=== PATIENT | female | born 1970 | race Caucasian/White ===

== ENCOUNTER 2021-08-01 10:55 | Observation (INO) | payer OTHER ==
[~2021-08-01] VITALS: Ht 165.1 cm; Wt 65.8 kg
[2021-08-01 10:55] VITALS: BP_SYST 135; BP_SYST 35
[2021-08-01] MEDS ORDERED: ASPIRIN 81 MG TAB.CHEW PO ONE (11:45)
[2021-08-01 12:02] LABS: BASOPHILS % (AUTO) 0.4 % (0.0-2.0); EOSINOPHILS % (AUTO) 0.5 % (0.0-4.0); HEMATOCRIT 37.3 % (36-48); HEMOGLOBIN 12.7 g/dL (12.0-16.0); LYMPHOCYTES # (AUTO) 1.6 K/uL (1.0-5.5); LYMPHOCYTES % (AUTO) 18.2 % (20.5-51.5); MEAN CORPUSCULAR HEMOGLOBIN 33 pg (27-31); MEAN CORPUSCULAR HGB CONC 34 % (32-36); MEAN CORPUSCULAR VOLUME 96 fL (79.0-98.0); MONOCYTES # (AUTO) 0.6 K/uL (0.0-1.0); MONOCYTES % (AUTO) 6.5 % (1.7-9.3); NEUTROPHILS # (AUTO) 6.5 K/uL (1.8-7.7); NEUTROPHILS % (AUTO) 74.4 % (40.0-70.0); PLATELET COUNT (AUTO) 178 K/uL (130-430); WHITE BLOOD COUNT (AUTO) 8.7 K/uL (4.8-10.8)
[2021-08-01 12:18] LABS: CALCIUM 9.1 mg/dL (8.4-11.0); CREATININE 0.7 mg/dL (0.55-1.30); POTASSIUM 3.8 mmol/L (3.5-5.1)
[2021-08-01 12:22] LABS: INR 0.9 (0.8-1.2); PROTHROMBIN TIME 9.9 SECS (9.5-12.5)
[2021-08-01 12:29] LABS: ALBUMIN 3.1 g/dL (3.4-4.8); TOTAL BILIRUBIN 1.2 mg/dL (0.0-1.0)
[2021-08-01 18:25] VITALS: BP_SYST 124
[2021-08-01 20:00] VITALS: BP_SYST 95
[2021-08-01] MEDS ORDERED: LEVO75CA5 PO (20:41)
[2021-08-01] MEDS ORDERED: CYM30 PO (20:52)
[2021-08-01] MEDS ORDERED: ATOR10TA68 PO (20:52)
[2021-08-01] MEDS ORDERED: ASPI-1155 PO (20:52)
[2021-08-01] MEDS ORDERED: ENAL2.5T17 PO (20:52)
[2021-08-01] MEDS ORDERED: DIVA250T2 PO (20:52)
[2021-08-01] MEDS ORDERED: CARV3.1246 PO (20:52)
[2021-08-01] MEDS ORDERED: ACETAMINOPHEN 325 MG TABLET PO ONE (21:00)
[2021-08-01] MEDS ORDERED: MECO10005 PO (21:43)
[2021-08-01] MEDS ORDERED: CHOL200041 PO (21:43)
[2021-08-01] MEDS ORDERED: PANT40TA45 PO (21:43)
[2021-08-01] MEDS ORDERED: DIVA250T PO (21:50)
[2021-08-01] MEDS ORDERED: DULoxetine HCL 30 MG CAPSULE.DR (CYMBALTA) PO ONE (22:00)
[2021-08-01] MEDS ORDERED: DIVALPROEX SODIUM 500 MG TABLET( DEPAKOTE) PO ONE ×2 (22:00→22:22)
[2021-08-01] MEDS ORDERED: POLYETHYLENE GLYCOL 3350, 17 GM/ POWD.PACK PO PRN (22:00)
[2021-08-01] MEDS ORDERED: ACETAMINOPHEN 325 MG TABLET ONE (22:00)
[2021-08-01] MEDS ORDERED: DULoxetine HCL 30 MG CAPSULE.DR (CYMBALTA) ONE (22:22)
[2021-08-02] VITALS: BP_SYST 102
[2021-08-02] MEDS ORDERED: CARVEDILOL 3.125 MG TABLET (COREG) PO PRN (07:30)
[2021-08-02 08:00] VITALS: BP_SYST 116
[2021-08-02] MEDS ORDERED: ASPIRIN 81 MG TAB.CHEW PO SCH (09:00)
[2021-08-02] MEDS ORDERED: DIVALPROEX SODIUM 250 MG TAB.SR.24H (DEPAKOTE ER) PO SCH ×2 (09:00→21:00)
[2021-08-02] MEDS ORDERED: ATORVASTATIN 10 MG TABLET PO SCH (09:00)
[2021-08-02] MEDS ORDERED: PANTOPRAZOLE SODIUM 40 MG TAB PO SCH (09:00)
[2021-08-02] MEDS ORDERED: DULoxetine HCL 30 MG CAPSULE.DR (CYMBALTA) PO SCH (09:00)
[2021-08-02 11:16] VITALS: BP_SYST 116
== END 2021-08-02 14:20 | disposition home or self-care (01) ==
LOC: SED 10:55 → STU 14:08
PROVIDERS: ADMIT Internal Medicine Hospice and Palliative Medicine; ATTEND Internal Medicine Hospice and Palliative Medicine
DX: I51.81 Takotsubo syndrome (principal); Z20.822 Contact with and (suspected) exposure to COVID-19; R07.89 Other chest pain; R51.9 Headache, unspecified; I49.01 Ventricular fibrillation; E03.9 Hypothyroidism, unspecified; E78.5 Hyperlipidemia, unspecified; F25.0 Schizoaffective disorder, bipolar type; F41.9 Anxiety disorder, unspecified; F43.10 Post-traumatic stress disorder, unspecified; I25.2 Old myocardial infarction; Z95.810 Presence of automatic (implantable) cardiac defibrillator; Z79.899 Other long term (current) drug therapy
CPT/HCPCS: 36415; 71045; 80053; 83880; 84484; 85025; 85610; 85730; 87426; 93005; 93306; 99285; G0378 ×2

== ENCOUNTER 2021-12-03 11:53 | Outpatient (CLI) | payer OTHER ==
[~2021-12-03 11:53] MED LIST: ASPI-1155 PO; ATOR10TA68 PO; CARV3.1246 PO; CHOL200041 PO; CYM30 PO; DIVA250T PO; DIVA250T2 PO; ENAL2.5T17 PO; LEVO75CA5 PO; MECO10005 PO; PANT40TA45 PO
== END 2021-12-03 13:00 | disposition home or self-care (01) ==
LOC: SLB 11:53 → SDS 12-07 10:09 → SMU 12-07 10:12 → SDS 12-07 10:13 → EDSTATUS 12-07 12:30
PROVIDERS: ATTEND Neurological Surgery
DX: Z01.812 Encounter for preprocedural laboratory examination (principal); M50.30 Other cervical disc degeneration, unspecified cervical region; U07.1 COVID-19; Z20.822 Contact with and (suspected) exposure to COVID-19
CPT/HCPCS: U0003

== ENCOUNTER 2022-01-04 13:07 | Day surgery (SDC) | payer OTHER, SELFPAY ==
[~2022-01-04] VITALS: Ht 165.1 cm; Wt 65.8 kg
[2022-01-04 13:27] LABS: BASOPHILS % (AUTO) 0.8 % (0.0-2.0); HEMATOCRIT 37.1 % (36-48); HEMOGLOBIN 12.1 g/dL (12.0-16.0); LYMPHOCYTES # (AUTO) 1.4 K/uL (1.0-5.5); LYMPHOCYTES % (AUTO) 36.4 % (20.5-51.5); MEAN CORPUSCULAR HEMOGLOBIN 32 pg (27-31); MEAN CORPUSCULAR HGB CONC 33 % (32-36); MEAN CORPUSCULAR VOLUME 99 fL (79.0-98.0); MONOCYTES # (AUTO) 0.3 K/uL (0.0-1.0); MONOCYTES % (AUTO) 7.3 % (1.7-9.3); NEUTROPHILS % (AUTO) 54.5 % (40.0-70.0); PLATELET COUNT (AUTO) 192 K/uL (130-430); RED BLOOD CELL COUNT(AUTO) 3.74 MIL/uL (4.2-6.2); RED CELL DISTRIBUTION WIDTH 13.2 % (9.0-15.0); WHITE BLOOD COUNT (AUTO) 3.7 K/uL (4.8-10.8)
[2022-01-04 13:44] LABS: PROTHROMBIN TIME 10.4 SECS (9.5-12.5)
[2022-01-04 13:47] LABS: CALCIUM 8.8 mg/dL (8.4-11.0); CREATININE 0.72 mg/dL (0.55-1.30); POTASSIUM 4.9 mmol/L (3.5-5.1)
[2022-01-04] MEDS ORDERED: METO-442 PO (13:55)
[2022-01-04] MEDS ORDERED: RISP0.5T5 PO (13:57)
[2022-01-04] MEDS ORDERED: TRAZ-250 PO (13:57)
[2022-01-04] MEDS ORDERED: LORA10TA7 PO (14:00)
[2022-01-04] MEDS ORDERED: MECO10005 (14:01)
[2022-01-04] MEDS ORDERED: FLUT16SP16 (14:04)
[2022-01-04 14:07] LABS: BILIRUBIN,URINE NEGATIVE (NEGATIVE); BLOOD, URINE NEGATIVE (NEGATIVE); CLARITY/URINE CLEAR (CLEAR); COLOR,URINE YELLOW (YELLOW); GLUCOSE,URINE NEGATIVE (NEGATIVE); KETONES,URINE NEGATIVE (NEGATIVE); LEUKOCYTE ESTERASE ,URINE NEGATIVE (NEGATIVE); NITRITE, URINE NEGATIVE (NEGATIVE); PROTEIN URINE NEGATIVE (NEGATIVE)
[2022-01-04] MEDS ORDERED: SEVOFLURANE 15 MIN GAS INH ONE (15:55)
[2022-01-04] MEDS ORDERED: ceFAZolin SODIUM 1 GM VIAL ONE (15:55)
[2022-01-04] MEDS ORDERED: BUPIVACAINE /EPINEPHRINE/PF 0.25% 30 ML VIAL INJ ONE (15:55)
[2022-01-04] MEDS ORDERED: fentaNYL CITRATE 250 MCG/5 ML AMP ONE (15:55)
[2022-01-04] MEDS ORDERED: MIDAZOLAM HCL 5 MG/ML VIAL (VERSED) IV ONE (15:55)
[2022-01-04] MEDS ORDERED: PROPOFOL 200MG/ 20ML VIAL (DIPRIVAN) IV ONE (15:55)
[2022-01-04] MEDS ORDERED: LR 1,000 ML IV.SOLN IV ONE (15:55)
[2022-01-04] MEDS ORDERED: THROMBIN (BOVINE) 5000 UNITS/ VIAL TP ONE ×2 (15:55→16:54)
[2022-01-04] MEDS ORDERED: DEXAMETHASONE SOD PHOSPHATE 4 MG/ML VIAL ONE (15:55)
[2022-01-04] MEDS ORDERED: ROCURONIUM BROMIDE 10 MG/ML (ZEMURON) ONE (15:55)
[2022-01-04] MEDS ORDERED: WATER FOR IRRIGATION,STERILE 1,000 ML IRRIG.SOLN IR ONE (15:55)
[2022-01-04] MEDS ORDERED: NS IRRIG SOLN 1000 ML IR ONE (15:55)
[2022-01-04] MEDS ORDERED: METOCLOPRAMIDE HCL 10 MG/2 ML VIAL IVP PRN (16:45)
[2022-01-04] MEDS ORDERED: fentaNYL CITRATE/PF 100 MCG/2 ML AMP IVP PRN ×2 (16:45)
[2022-01-04] MEDS ORDERED: ONDANSETRON HCL 4 MG/2 ML VIAL IVP PRN (16:45)
[2022-01-04] MEDS ORDERED: fentaNYL CITRATE/PF 100 MCG/2 ML AMP ONE (17:54)
[2022-01-04] MEDS ORDERED: KETOROLAC TROMETHAMINE 30 MG VIAL ONE (17:58)
[2022-01-04] MEDS ORDERED: KETOROLAC TROMETHAMINE 30 MG VIAL IVP ONE (18:30)
[2022-01-04 19:05] VITALS: BP_SYST 118
== END 2022-01-04 18:50 | disposition home or self-care (01) ==
LOC: SDS 13:07 → SMU 13:08 → SDS 18:50
PROVIDERS: ATTEND Neurological Surgery
DX: M50.022 Cervical disc disorder at C5-C6 level with myelopathy (principal); F31.9 Bipolar disorder, unspecified; J45.909 Unspecified asthma, uncomplicated; Z79.01 Long term (current) use of anticoagulants; Z79.899 Other long term (current) drug therapy; Z20.822 Contact with and (suspected) exposure to COVID-19
CPT/HCPCS: 22856; 36415; 80048; 81003; 85025; 85610; 85730; 87426; C1776; J0690; J1100; J1885; J2250; J2704; J3010 ×2; J3490; J7120; U0003; 76000; Q9967

== ENCOUNTER 2024-06-04 02:31 | Emergency (ER) | payer OTHER, BC ==
[~2024-06-04] VITALS: Ht 165.1 cm; Wt 95.3 kg
[~2024-06-04 02:31] MED LIST changes: -CARV3.1246 PO; -CHOL200041 PO; -ENAL2.5T17 PO; +FLUT16SP16; +LORA10TA7 PO; +MECO10005; +METO-442 PO; -PANT40TA45 PO; +RISP0.5T5 PO; +TRAZ-250 PO
[2024-06-04 02:35] VITALS: BP_SYST 114; PULSE 73; RESP 16; TEMP 98.2; O2SAT 96
[2024-06-04] MEDS ORDERED: NAPR-1172 PO (04:14)
== END 2024-06-04 04:21 | disposition home or self-care (01) ==
LOC: SED 02:31
DX: S93.492A Sprain of other ligament of left ankle, initial encounter (principal); Z98.890 Other specified postprocedural states; Z88.8 Allergy status to other drugs, medicaments and biological substances; Z79.899 Other long term (current) drug therapy; Z79.2 Long term (current) use of antibiotics; Z79.82 Long term (current) use of aspirin; W22.8XXA Striking against or struck by other objects, initial encounter; Y93.01 Activity, walking, marching and hiking; Y92.89 Other specified places as the place of occurrence of the external cause; Y99.8 Other external cause status
CPT/HCPCS: 99283